=== PATIENT | female | born 1960 | race Caucasian/White ===

== ENCOUNTER 2018-11-11 15:11 | Emergency (ER) | payer MEDICARE ==
[2018-11-11 15:36] VITALS: PULSE 73; O2SAT 94
[2018-11-11] MEDS ORDERED: Tylenol #3 Tablet PO ONE (15:39)
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
[2018-11-11] MEDS ORDERED: Tylenol #3 Tablet ONE (15:58)
[2018-11-11 16:54] VITALS: BP 141/89
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
== END 2018-11-11 16:58 | disposition home or self-care (01) ==
LOC: ED 15:11
DX: S40.011A Contusion of right shoulder, initial encounter (principal); S59.901A Unspecified injury of right elbow, initial encounter; S80.01XA Contusion of right knee, initial encounter; S80.211A Abrasion, right knee, initial encounter; S90.511A Abrasion, right ankle, initial encounter; V17.0XXA Pedal cycle driver injured in collision with fixed or stationary object in nontraffic accident, initial encounter; Y93.55 Activity, bike riding; I10 Essential (primary) hypertension; E03.9 Hypothyroidism, unspecified; Z79.899 Other long term (current) drug therapy
CPT/HCPCS: 73030; 73080; 73562; 99283; A9270-GY

== ENCOUNTER 2021-01-24 20:39 | Emergency (ER) | payer MEDICARE ==
--- NOTE | 2021-01-24 21:04 | ERPHSYRPT ---
- History of Present Illness Time Seen by Provider: 01/24/21 21:04 Source: patient Exam Limitations: no limitations Physician History: This is an obese 60-year-old white female who has a history of diabetes, hypertension and has chronic back issues. In the last several days she has been very active and working with a lot of twisting and lifting. She presents emergency department with worsening left lower back pain with sciatica symptoms of shooting down the buttock and the upper portion of the left leg posteriorly. She denies any falls or acute trauma. She does have tramadol and Flexeril at home but is only been taking tramadol once a day and has not been taking the Flexeril. She denies chest pain. She denies shortness of breath. She denies abdominal pain. She denies dysuria and denies hematuria. She has no loss of bladder or bowel control. She has no numbness down into her feet or toes Timing/Duration: today Method of Injury: other (No injury) Quality: radiating, aching Back Pain Location: lumbar spine Back Pain Radiation: buttocks (Buttock), upper legs (Posteriorly left side) Severity of Pain-Max: moderate Severity of Pain-Current: moderate Modifying Factors: Improves With: movement Associated Symptoms: denies symptoms Previous symptoms: same symptoms as today Allergies/Adverse Reactions: Penicillins Adverse Reaction (Intermediate, Verified 01/24/21 21:16) Itching Home Medications: Metoprolol Tartrate 50 mg [Lopressor 50 MG] 50 mg PO BID 02/19/14 [History] PARoxetine HCl [Paxil] 40 mg PO DAILY 02/19/14 [History] Aspirin [Aspirin EC] 81 mg PO DAILY 09/19/14 [History] Cetirizine HCl [Allergy Relief] 10 mg PO DAILY 09/19/14 [History] Levothyroxine Sodium 50 Mcg [Synthroid 50 Mcg] 50 mcg PO DAILY 09/19/14 [History] Metformin HCl [Glucophage] 1,000 mg PO BID 11/11/18 [History] Potassium Chloride 10 Meq Tab* [Klor Con 10 MEQ] 10 meq PO DAILY 11/11/18 [History] Pregabalin 50 mg [Lyrica 50MG] 50 mg PO BID 11/11/18 [History] Solifenacin Succinate [Vesicare] 10 mg PO DAILY 11/11/18 [History] Empagliflozin [Jardiance] 25 mg PO DAILY 01/24/21 [History] Ergocalciferol (Vitamin D2) [Vitamin D2] 1,250 mcg PO WEEKLY 01/24/21 [History] Meclizine HCl 25 mg [Antivert 25 mg] 25 mg PO TID 01/24/21 [History] Rosuvastatin Calcium 20 mg PO DAILY 01/24/21 [History] Semaglutide [Ozempic] 0.5 mg IN WEEKLY 01/24/21 [History] Sulfamethoxazole/Trimethoprim [Sulfamethoxazole-Tmp Ds Tablet] 0.5 tab PO DAILY 01/24/21 [History] Hx Tetanus, Diphtheria Vaccination/Date Given: Yes Hx Influenza Vaccination/Date Given: Yes Hx Pneumococcal Vaccination/Date Given: No Travel Risk - International Travel Have you traveled outside of the country in past 3 weeks: No - Coronavirus Screening Are you exhibiting any of the following symptoms?: No Close contact with a COVID-19 positive Pt in past 14-21 Days: No - Review of Systems Constitutional: No Symptoms Eyes: No Symptoms Ears, Nose, & Throat: No Symptoms Respiratory: No Symptoms Cardiac: No Symptoms Abdominal/Gastrointestinal: No Symptoms Genitourinary Symptoms: No Symptoms Musculoskeletal: Back Pain Skin: No Symptoms Neurological: No Symptoms Psychological: No Symptoms Endocrine: No Symptoms Hematologic/Lymphatic: No Symptoms Immunological/Allergic: No Symptoms All Other Systems: Reviewed and Negative - Past Medical History Pertinent Past Medical History: Yes Neurological History: Peripheral Neuropathy ENT History: No Pertinent History Cardiac History: Angina, High Cholesterol, Hypertension Respiratory History: No Pertinent History Endocrine Medical History: Hypothyroidism Musculoskeletal History: Arthritis, Degenerative Disk Disease, Fibromyalgia GI Medical History: Gallbladder Disease, Irritable Bowel History: No Pertinent History Psycho-Social History: Anxiety, Depression, Panic Disorder Female Reproductive Disorders: No Pertinent History - Past Surgical History Past Surgical History: Yes Neuro Surgical History: No Pertinent History Cardiac: Cardiac Catheterization Respiratory: No Pertinent History Gastrointestinal: Appendectomy, Cholecystectomy Genitourinary: No Pertinent History Musculoskeletal: Orthopedic Surgery Female Surgical History: Tubal Ligation Other Surgical History: back,both knees - Social History Smoking Status: Never smoker Exposure to second hand smoke: No Drug Use: none Patient Lives Alone: No - Nursing Vital Signs Nursing Vital Signs: Initial Vital Signs Temperature 98.4 F 01/24/21 20:39 Pulse Rate 77 01/24/21 20:39 Respiratory Rate 18 01/24/21 20:39 Blood Pressure 131/91 01/24/21 20:39 O2 Sat by Pulse Oximetry 98 01/24/21 20:39 Pain Scale Pain Intensity [Left Upper 9 Lateral Proximal Thigh] Pain Intensity 9 - Physical Exam General Appearance: mild distress, alert, anxiety Eye Exam: PERRL/EOMI, eyes nml inspection Ears, Nose, Throat Exam: normal ENT inspection, moist mucous membranes Neck Exam: normal inspection, non-tender, supple, full range of motion Respiratory Exam: normal breath sounds, lungs clear, airway intact, No chest tenderness, No respiratory distress Cardiovascular Exam: regular rate/rhythm, normal heart sounds, normal peripheral pulses Gastrointestinal Exam: soft, normal bowel sounds, No tenderness Pelvic Exam: not done Rectal Exam: not done Back Exam: normal inspection, normal range of motion, No CVA tenderness, No vertebral tenderness Extremity Exam: normal inspection, normal range of motion, pelvis stable Neurologic Exam: alert, oriented x 3, cooperative, biostatistics manager II-XII nml as tested, normal mood/affect, nml cerebellar function, nml station & gait, sensation nml Skin Exam: normal color, warm, dry Lymphatic Exam: No adenopathy SpO2 Interpretation: normal O2 Delivery: Room Air - Course Nursing assessment & vital signs reviewed: Yes Ordered Tests: Medication Summary Discontinued Medications Generic Name Dose Route Start Last Admin Trade Name Leanne PRN Reason Stop Dose Admin Methylprednisolone Sodium 0 mg 01/24/21 22:05 01/24/21 22:27 Succinate 125 mg/ Sterile IM 01/24/21 22:06 125 mg Water 2 ml STAT ONE Administration Hydromorphone HCl 1 mg 01/24/21 22:09 01/24/21 22:28 Hydromorphone 1 Mg/Ml Injection IM 01/24/21 22:10 1 mg STAT ONE Administration Hydromorphone HCl Confirm 01/24/21 22:22 Hydromorphone 1 Mg/Ml Injection Administered 01/24/21 22:23 Dose 1 mg .ROUTE .STK-MED ONE Methylprednisolone Sodium Succinate Confirm 01/24/21 22:23 Solu-Medrol Administered 01/24/21 22:24 Dose 125 mg .ROUTE .STK-MED ONE Ondansetron HCl 4 mg 01/24/21 22:05 01/24/21 22:26 Zofran Odt 4 Mg PO 01/24/21 22:06 4 mg STAT ONE Administration Ondansetron HCl Confirm 01/24/21 22:22 Zofran Odt 4 Mg Administered 01/24/21 22:23 Dose 4 mg .ROUTE .STK-MED ONE Orphenadrine Citrate 60 mg 01/24/21 22:09 01/24/21 22:30 Norflex 60 Mg/2 Ml IM 01/24/21 22:10 60 mg STAT ONE Administration Orphenadrine Citrate Confirm 01/24/21 22:22 Norflex 60 Mg/2 Ml Administered 01/24/21 22:23 Dose 60 mg .ROUTE .STK-MED ONE Sterile Water Confirm 01/24/21 22:23 Sterile H2o 10 Ml Administered 01/24/21 22:24 Dose 10 ml IJ .STK-MED ONE - Progress Progress: improved, pain not gone completely Counseled pt/family regarding: diagnosis, need for follow-up - Departure Departure Disposition: Home Clinical Impression: Sciatica Condition: Stable Critical Care Time: No Referrals: TANMAY GONZALEZ [Primary Care Provider] - Additional Instructions: Take your tramadol medication 3 times a day. Take your Flexeril (cyclobenzaprine) 3 times a day. Fill your prednisone prescription and take as directed. Follow-up with your primary care physician on 01/27/2021 for further management. Prescriptions: Prednisone 10 mg [Deltasone 10 mg] 10 mg PO TID #12 tablet
[2021-01-24 21:47] VITALS: O2SAT 98
[2021-01-24] MEDS ORDERED: ZOFRAN ODT 4 MG PO ONE (22:05)
[2021-01-24] MEDS ORDERED: solu-MEDROL 125 MG, Sterile H2O 10 ml 2 ML IM ONE ×2 (22:05)
[2021-01-24] MEDS ORDERED: Norflex 60 MG/2 ML IM ONE (22:09)
[2021-01-24] MEDS ORDERED: Hydromorphone 1 mg/ml Injection IM ONE (22:09)
[2021-01-24] MEDS ORDERED: ZOFRAN ODT 4 MG ONE (22:22)
[2021-01-24] MEDS ORDERED: Hydromorphone 1 mg/ml Injection ONE (22:22)
[2021-01-24] MEDS ORDERED: Norflex 60 MG/2 ML ONE (22:22)
[2021-01-24] MEDS ORDERED: Sterile H2O 10 ml IJ ONE (22:23)
[2021-01-24] MEDS ORDERED: solu-MEDROL ONE (22:23)
[2021-01-24 23:26] VITALS: BP 132/84; PULSE 78
== END 2021-01-24 23:25 | disposition home or self-care (01) ==
LOC: ED 20:39
DX: M54.30 Sciatica, unspecified side (principal)
CPT/HCPCS: 96372; 99284; J1170; J2360; J2930; Q0162

== ENCOUNTER 2022-02-24 20:19 | Emergency (ER) | payer MEDICARE ==
[2022-02-24 21:02] VITALS: BP 152/89; PULSE 79; O2SAT 97
--- NOTE | 2022-02-24 21:20 | ERPHSYRPT ---
- History of Present Illness Time Seen by Provider: 02/24/22 20:35 Source: patient Exam Limitations: no limitations Patient Subjective Stated Complaint: I was messing with the trash outside and got caught on the lid and fell onto the pavement. Triage Nursing Assessment: Pt ambulated into ER without difficulty. Pt was outside taking the trash out and got caught on the lid and fell, hitting the pavement. Pt has a baseball sized hematoma to right side of forehead with bruising. Pt did not lose consciousness. Pt takes a 1 baby ASA daily but no other blood thinner. Pt alert and oriented x4, pleasant. Physician History: Patient is a 61-year-old female presents to emergency department for evaluation status post fall head trauma. Patient was throwing garbage out when her clothing got caught on the lid causing her to stumble and fall. Patient has a hematoma to the right frontal area. No loss of consciousness. Injury occurred just prior to arrival. Pain described as an ache that is localized. No radiation. No neck pain. Cervical spine cleared clinically. The fall was not associated with any chest pain or shortness of breath. No nausea vomiting or diaphoresis. No numbness tingling or weakness. Patient voices no other complaints or concerns at this time. Portions of this note were created with voice recognition technology. There may be grammatical, spelling, punctuation or sound alike errors Occurred: just prior to arrival Severity: moderate Head Injury Location: frontal (Right frontal hematoma) Method of Injury: fell Loss of Consciousness: no loss of consciousness Associated Symptoms: denies symptoms Allergies/Adverse Reactions: Penicillins Adverse Reaction (Intermediate, Verified 02/24/22 20:37) Itching Home Medications: Metoprolol Tartrate 50 mg [Lopressor 50 MG] 50 mg PO BID 02/19/14 [History] PARoxetine HCl [Paxil] 40 mg PO DAILY 02/19/14 [History] Aspirin [Aspirin EC] 81 mg PO DAILY 09/19/14 [History] Cetirizine HCl [Allergy Relief] 10 mg PO DAILY 09/19/14 [History] Levothyroxine Sodium 50 Mcg [Synthroid 50 Mcg] 50 mcg PO DAILY 09/19/14 [History] Metformin HCl [Glucophage] 1,000 mg PO BID 11/11/18 [History] Potassium Chloride Tab* [Klor Con 10 MEQ] 10 meq PO DAILY 11/11/18 [History] Pregabalin 50 mg [Lyrica 50MG] 50 mg PO BID 11/11/18 [History] Solifenacin Succinate [Vesicare] 10 mg PO DAILY 11/11/18 [History] Empagliflozin [Jardiance] 25 mg PO DAILY 01/24/21 [History] Ergocalciferol (Vitamin D2) [Vitamin D2] 1,250 mcg PO WEEKLY 01/24/21 [History] Meclizine HCl 25 mg [Antivert 25 mg] 25 mg PO TID 01/24/21 [History] Rosuvastatin Calcium 20 mg PO DAILY 01/24/21 [History] Semaglutide [Ozempic] 0.5 mg IN WEEKLY 01/24/21 [History] Sulfamethoxazole/Trimethoprim [Sulfamethoxazole-Tmp Ds Tablet] 0.5 tab PO DAILY 01/24/21 [History] Hx Tetanus, Diphtheria Vaccination/Date Given: Yes Hx Influenza Vaccination/Date Given: No Hx Pneumococcal Vaccination/Date Given: Yes Immunizations Up to Date: Yes Travel Risk - International Travel Have you traveled outside of the country in past 3 weeks: No - Coronavirus Screening Are you exhibiting any of the following symptoms?: No Close contact with a COVID-19 positive Pt in past 14-21 Days: No - Vaccine Status Have you recieved a Covid-19 vaccination: Yes Diet Clerk: Moderna - Vaccination Dates Date of 2cond Vaccination (if applicable): . - Review of Systems Constitutional: No Symptoms, No Fever, No Chills Eyes: No Symptoms Ears, Nose, & Throat: No Symptoms Respiratory: No Symptoms, No Cough, No Dyspnea Cardiac: No Symptoms, No Chest Pain, No Edema, No Syncope Abdominal/Gastrointestinal: No Symptoms, No Abdominal Pain, No Nausea, No Vomiting, No Diarrhea Genitourinary Symptoms: No Symptoms, No Dysuria Musculoskeletal: No Symptoms, No Back Pain, No Neck Pain Skin: No Symptoms, No Rash Neurological: No Symptoms, No Dizziness, No Focal Weakness, No Sensory Changes Psychological: No Symptoms Endocrine: No Symptoms Hematologic/Lymphatic: No Symptoms Immunological/Allergic: No Symptoms All Other Systems: Reviewed and Negative - Past Medical History Pertinent Past Medical History: Yes Neurological History: Peripheral Neuropathy, Other ENT History: No Pertinent History Cardiac History: Angina, High Cholesterol, Hypertension Respiratory History: No Pertinent History Endocrine Medical History: Diabetes Type II, Hypothyroidism Musculoskeletal History: Arthritis, Degenerative Disk Disease, Fibromyalgia GI Medical History: Gallbladder Disease, Irritable Bowel History: No Pertinent History Psycho-Social History: Anxiety, Depression, Panic Disorder Female Reproductive Disorders: No Pertinent History Other Medical History: narcolepsy - Past Surgical History Past Surgical History: Yes Neuro Surgical History: No Pertinent History Cardiac: Cardiac Catheterization Respiratory: No Pertinent History Gastrointestinal: Appendectomy, Cholecystectomy Genitourinary: No Pertinent History Musculoskeletal: Orthopedic Surgery Female Surgical History: Tubal Ligation Other Surgical History: back,both knees - Social History Smoking Status: Never smoker Exposure to second hand smoke: No Drug Use: none Patient Lives Alone: No - Nursing Vital Signs Nursing Vital Signs: Initial Vital Signs Temperature 97.5 F 02/24/22 20:27 Pulse Rate 85 02/24/22 20:27 Respiratory Rate 20 02/24/22 20:27 Blood Pressure 162/88 02/24/22 20:27 O2 Sat by Pulse Oximetry 95 02/24/22 20:27 Pain Scale Pain Intensity 6 - Walker Coma Score Best Eye Response (Walker): (4) open spontaneously Best Verbal Response (Magnolia): (5) oriented Best Motor Response (Walker): (6) obeys commands Walker Total: 15 - Physical Exam General Appearance: no apparent distress, alert Eye Exam: bilateral eye: normal inspection, PERRL, EOMI ENT Exam: airway nml, evidence of ENT injury, No dental injury Neck Exam: supple, trachea midline, full range of motion, normal alignment Cardiovascular/Respiratory Exam: chest non-tender, normal breath sounds, regular rate/rhythm Gastrointestinal/Abdominal Exam: soft, non tender, no distention, no mass, no guarding Back Exam: normal inspection, No vertebral tenderness Extremity Exam: non-tender, normal range of motion, normal inspection Mental Status Exam: alert, oriented x 3, cooperative manager valuation Exam: normal hearing, normal speech, PERRL, No abnormal eye position Coordination/Gait Exam: normal finger to nose, normal gait, normal cerebellar function Motor/Sensory Exam: no motor deficit, no sensory deficit, CN II-XII intact Skin Exam: normal color, warm, dry, No rash Lymphatic Exam: No adenopathy SpO2 Interpretation: normal SpO2: 97 O2 Delivery: Room Air - Course Nursing assessment & vital signs reviewed: Yes - CT Exams Head CT Interpretation: Tele-radiologist Report (No intracranial hemorrhage mass- effect or midline shift. No ventriculomegaly. The visualized sinuses are clear. Visualized mastoid air cells are well aerated. No acute or destructive abnormalities. No CT signs of acute intracranial hemorrhage. Right frontal scalp contusion) Ordered Tests: Active Orders 24 hr Category Date Time Status HEAD WITHOUT CONTRAST [CT] Stat Exams 02/24/22 20:29 Taken - Progress Progress: improved Progress Note: Patient reassessed. She is well. CT negative for acute intracranial pathology. Right frontal scalp contusion observed. No indication for further work-up at this time. Patient feels well. Patient declined pain medication. Patient that she is ready for discharge. Will discharge home. Patient agrees to follow-up with primary care doctor within 48 hours for reevaluation. Portions of this note were created with voice recognition technology. There may be grammatical, spelling, punctuation or sound alike errors 02/24/22 21:24 Counseled pt/family regarding: diagnosis, need for follow-up, rad results - Departure Departure Disposition: Home Clinical Impression: Fall, Hematoma of frontal scalp Condition: Stable Critical Care Time: No Referrals: TANMAY GONZALEZ [Primary Care Provider] - Follow up/PCP as directed Additional Instructions: Discharge/Care Plan LAINA CARTER was seen on 02/24/22 in the Emergency Room. The patient was counseled regarding Diagnosis,Lab results, Imaging studies, need for follow up and when to return to the Emergency Room. Prescriptions given: Discharge Note I have spoken with the patient and/or caregivers. I have explained the patient's condition, diagnosis and treatment plan based on the information available to me at this time. I have answered the patient's and/or caregiver's questions and addressed any concerns. The patient and/or caregivers have as good understanding of the patient's diagnosis, condition and treatment plan as can be expected at this point. The vital signs have been stable. The patient's condition is stable and appropriate for discharge from the emergency department. The patient will pursue further outpatient evaluation with the primary care physician or other designated or consulting physician as outlined in the discharge instructions. The patient and/or caregivers are agreeable to this plan of care and follow-up instructions have been explained in detail. The patient and/or caregivers have received these instruction. The patient/and or caregivers are aware that any significant change in condition or worsening of symptoms should prompt an immediate return to this or the closest emergency department or call 911.
== END 2022-02-24 21:30 | disposition home or self-care (01) ==
LOC: ED 20:19
DX: S00.03XA Contusion of scalp, initial encounter (principal); W01.0XXA Fall on same level from slipping, tripping and stumbling without subsequent striking against object, initial encounter; Y93.H9 Activity, other involving exterior property and land maintenance, building and construction; Y92.007 Garden or yard of unspecified non-institutional (private) residence as the place of occurrence of the external cause; R51.9 Headache, unspecified; E78.5 Hyperlipidemia, unspecified; I10 Essential (primary) hypertension; E11.42 Type 2 diabetes mellitus with diabetic polyneuropathy
CPT/HCPCS: 70450; 99282

== ENCOUNTER 2023-09-12 14:37 | Emergency (ER) | payer MEDICARE ==
[2023-09-12 15:26] VITALS: PULSE 76; RESP 18; TEMP 97.9; O2SAT 95
--- NOTE | 2023-09-12 16:10 | ERPHSYRPT ---
- History of Present Illness Time Seen by Provider: 09/12/23 14:57 Source: patient Exam Limitations: no limitations Patient Subjective Stated Complaint: fall Triage Nursing Assessment: Patient states today she had a fall landing on her left knee. patient comins of left knee pain 02/11. No bruising, swelling or tauma noted to mid back, left arm and left knee. Physician History: 63-year-old female with multiple medical problems including hypertension, hyperlipidemia, diabetes mellitus, hypothyroidism presented in the ER with complains of left knee pain after she tripped on something possibly a toy at a birthday [employer] and fell on the left knee. Patient reports moderate to severe sharp pain left knee with mild swelling and difficulty ambulation. This happened earlier today. Did not hit her head. No loss of consciousness. Patient reports pain radiates down to her left ankle area. No injury anywhere else. Patient also reports having pain in the left shoulder blade area for last 2 to 3 weeks making it difficult to move left upper extremity and has to move in a certain way to avoid pain. She was seen outpatient for this and has taken muscle relaxants with no significant relief. Patient reported at nighttime if she sleeps in a certain position it will radiate to left hand. No weakness in the left upper extremity. Denies any fall or trauma. No rash. Denies any chest pain. Pain is reproducible with palpation. Does not have any midline back pain. Allergies/Adverse Reactions: Penicillins Adverse Reaction (Intermediate, Verified 09/12/23 15:09) Itching Home Medications: Metoprolol Tartrate 50 mg [Lopressor 50 MG] 50 mg PO BID 02/19/14 [History] PARoxetine HCL [Paxil] 40 mg PO DAILY 02/19/14 [History] Aspirin [Aspirin EC] 81 mg PO DAILY 09/19/14 [History] Cetirizine HCl [Allergy Relief] 10 mg PO DAILY 09/19/14 [History] Levothyroxine Sodium 50 Mcg [Synthroid 50 Mcg] 50 mcg PO DAILY 09/19/14 [History] Metformin HCl [Glucophage] 1,000 mg PO BID 11/11/18 [History] Potassium Chloride Tab* [Klor Con 10 MEQ] 10 meq PO DAILY 11/11/18 [History] Pregabalin 50 mg [Lyrica 50MG] 50 mg PO BID 11/11/18 [History] Solifenacin Succinate [Vesicare] 10 mg PO DAILY 11/11/18 [History] Empagliflozin [Jardiance] 25 mg PO DAILY 01/24/21 [History] Ergocalciferol (Vitamin D2) [Vitamin D2] 1,250 mcg PO WEEKLY 01/24/21 [History] Meclizine HCl 25 mg [Antivert 25 mg] 25 mg PO TID 01/24/21 [History] Rosuvastatin Calcium 20 mg PO DAILY 01/24/21 [History] Semaglutide [Ozempic] 0.5 mg IN WEEKLY 01/24/21 [History] Sulfamethoxazole/Trimethoprim [Sulfamethoxazole-Tmp Ds Tablet] 0.5 tab PO DAILY 01/24/21 [History] Hx Tetanus, Diphtheria Vaccination/Date Given: Yes Hx Influenza Vaccination/Date Given: No Hx Pneumococcal Vaccination/Date Given: Yes Travel Risk - International Travel Have you traveled outside of the country in past 3 weeks: No - Coronavirus Screening Are you exhibiting any of the following symptoms?: No Close contact with a COVID-19 positive Pt in past 14-21 Days: No - Vaccine Status Have you recieved a Covid-19 vaccination: Yes 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 - Review of Systems Constitutional: No Symptoms Eyes: No Symptoms Ears, Nose, & Throat: No Symptoms Respiratory: No Symptoms Cardiac: No Symptoms Abdominal/Gastrointestinal: No Symptoms Genitourinary Symptoms: No Symptoms Musculoskeletal: Arthralgias, Back Pain Skin: No Symptoms Neurological: No Symptoms Endocrine: No Symptoms Hematologic/Lymphatic: No Symptoms - Past Medical History Pertinent Past Medical History: Yes Neurological History: Peripheral Neuropathy, Other ENT History: No Pertinent History Cardiac History: Angina, High Cholesterol, Hypertension Respiratory History: No Pertinent History Endocrine Medical History: Diabetes Type II, Hypothyroidism Musculoskeletal History: Arthritis, Degenerative Disk Disease, Fibromyalgia GI Medical History: Gallbladder Disease, Irritable Bowel History: No Pertinent History Psycho-Social History: Anxiety, Depression, Panic Disorder Female Reproductive Disorders: No Pertinent History Other Medical History: narcolepsy - Past Surgical History Past Surgical History: Yes Neuro Surgical History: No Pertinent History Cardiac: Cardiac Catheterization Respiratory: No Pertinent History Gastrointestinal: Appendectomy, Cholecystectomy Genitourinary: No Pertinent History Musculoskeletal: Orthopedic Surgery Female Surgical History: Tubal Ligation Other Surgical History: back,both knees - Social History Smoking Status: Never smoker Exposure to second hand smoke: No Drug Use: none Patient Lives Alone: No - Nursing Vital Signs Nursing Vital Signs: Initial Vital Signs Temperature 97.9 F 09/12/23 15:10 Pulse Rate 76 09/12/23 15:10 Respiratory Rate 18 09/12/23 15:10 Blood Pressure 127/82 09/12/23 15:10 O2 Sat by Pulse Oximetry 95 09/12/23 15:10 Pain Scale Pain Intensity 5 - Physical Exam General Appearance: no apparent distress, alert Eyes, Ears, Nose, Throat Exam: normal ENT inspection Neck Exam: normal inspection, non-tender, supple, full range of motion Cardiovascular/Respiratory Exam: normal breath sounds, regular rate/rhythm, No chest non-tender (Left scapula and thoracic paraspinal area, left shoulder) Gastrointestinal/Abdominal Exam: non-tender, soft Back Exam: normal inspection, normal range of motion Hips Exam: bilateral: non-tender, normal inspection, normal range of motion, no evidence of injury Legs Exam: bilateral leg: non-tender, normal inspection, normal range of motion, no evidence of injury Knees Exam: right knee: non-tender, normal inspection, normal range of motion, no evidence of injury, left knee: bone tenderness, pain, soft tissue tenderness, swelling Ankle Exam: bilateral ankle: non-tender, normal inspection, normal range of motion, no evidence of injury Neuro/Tendon Exam: normal sensation, normal motor functions, normal tendon functions Mental Status Exam: alert, oriented x 3, cooperative Skin Exam: normal color SpO2 Interpretation: normal SpO2: 95 O2 Delivery: Room Air Ordered Tests: Medication Summary Discontinued Medications Generic Name Dose Route Start Last Admin Trade Name Freq PRN Reason Stop Dose Admin Hydrocodone Bitart/Acetaminophen 1 tab 09/12/23 15:45 09/12/23 16:15 Hydrocodone/Apap 5/325 1 Tab Tablet PO 09/12/23 15:46 1 tab STAT ONE Administration Hydrocodone Bitart/Acetaminophen Confirm 09/12/23 16:12 Hydrocodone/Apap 5/325 1 Tab Tablet Administered 09/12/23 16:13 Dose 1 tab .ROUTE .STK-MED ONE - Progress Progress: improved Progress Note: 09/12/23 19:04 Given Collins for symptomatic relief, feeling better on reevaluation and able to move her knee better. Lungs bilateral clear to auscultation. Patient has tenderness in the left scapula/paraspinal area and left shoulder. It is clear musculoskeletal, do not think cardiac in nature at all. X-rays are negative for acute rib fracture, pneumothorax reviewed by me, official report report is pending. X-rays of the left knee are negative for acute fracture and hardware seems to be in place. She is placed in Momo wrap. Recommended using cane/walker for ambulation and outpatient orthopedic follow-up. Discussed signs symptoms of worsening needing return to ER which she seems understanding. Counseled pt/family regarding: diagnosis, need for follow-up, rad results Medical Desision Making - Diagnostic Testing Diagnostic test were ordered, analyzed, and reviewed by me: Yes Radiological Interpretation: Interpreted by me, Reviewed by me - Departure Departure Disposition: Home Clinical Impression: Contusion, knee, Shoulder blade pain Condition: Stable Critical Care Time: No Referrals: TANMAY GONZALEZ [Primary Care Provider] - Follow up with PCP 1 day BANDAR HIGHTOWER MD [ACTIVE STAFF] - Follow up/PCP as directed (Tomorrow for appointment for reevaluation) Instructions: Contusion (DC), Preventing falls in adults Additional Instructions: Continue with tramadol and muscle relaxants. Use cane/walker for ambulation. Follow-up with primary care and orthopedics for reevaluation. Return to ER for any worsening. Forms: Ortho Referral
[2023-09-12] MEDS ORDERED: NORCO 5/325 MG ONE (16:12)
[2023-09-12] MEDS: NORCO 5/325 MG PO ONE (16:15)
--- NOTE | 2023-09-12 18:38 | XRAY ---
Indication: Pain following fall. Comparison: None 3 view left knee demonstrates osteopenia, total knee arthroplasty with intact prosthesis, tiny suprapatella heterotopic ossification, and minimal vascular calcifications. No other bony, articular, or soft tissue abnormalities.
--- NOTE | 2023-09-12 18:38 | XRAY ---
Indication: Pain following fall. Comparison: None 2 view left ribs demonstrates osteopenia, mild degenerative changes throughout spine, mild left shoulder degenerative arthropathy, and cholecystectomy clips. No other bony, articular, or soft tissue abnormalities.
[2023-09-12 19:33] VITALS: BP 111/66
== END 2023-09-12 19:46 | disposition home or self-care (01) ==
LOC: ED 14:37
DX: S80.02XA Contusion of left knee, initial encounter (principal); M25.562 Pain in left knee; M25.512 Pain in left shoulder; W19.XXXA Unspecified fall, initial encounter; R26.2 Difficulty in walking, not elsewhere classified
CPT/HCPCS: 71100; 73562; 99283; A9270-GY